=== PATIENT | male | born 1975 | race Hispanic/Latino ===

== ENCOUNTER 2024-03-15 22:02 | Emergency (ER) | payer OTHER ==
[2024-03-15] MEDS ORDERED: MECLIZINE HCL 12.5 MG TAB ONE (22:27)
[2024-03-15] MEDS ORDERED: NA CHLORIDE 0.9% 500 ML ONE (22:28)
[2024-03-15] MEDS ORDERED: DIPHENHYDRAMINE 50 MG/ML VIAL ONE (22:28)
[2024-03-15] MEDS ORDERED: METOCLOPRAMIDE 10 MG/2mL INJ ONE (22:28)
[2024-03-15 22:29] LABS: Absolute Basophils 0.1 K/uL (0-0.5); Absolute Eosinophils 0.1 K/uL (0-0.5); Absolute Lymphocytes (CBC) 1.8 K/uL (0.7-4.9); Absolute Monocytes 0.5 K/uL (0.1-1.3); Absolute Neutrophil 5.6 K/uL (1.8-8.0); Basophils % 0.6 % (0-1.3); Eosinophils % 1.5 % (0-4.4); Hematocrit 47.9 % (39.6-49.0); Hemoglobin 16.4 g/dL (13.6-17.9); MCHC 34.2 g/dL (32.0-36.0); MCV 84.5 fL (80-100); MPV 7.7 fL (7.6-11.3); Monocytes % 6.6 % (3.3-12.3); Neutrophils % 69.3 % (41.7-73.7); Platelets 283 thou/uL (152-406); RBC Red Blood Cell Count 5.66 M/uL (4.33-5.43); Red Cell Distribution Width 13.6 % (12.1-15.2)
[2024-03-15 22:54] LABS: Anion Gap 11.3 mEq/L (5.0-15.0); Potassium 4.3 mEq/L (3.5-5.1); Troponin High Sensitivity 5.8 pg/mL (<58.9)
--- NOTE | 2024-03-15 23:49 | RAD REPORT ---
EXAM DESCRIPTION: Chest Single View CLINICAL HISTORY: COUGH COMPARISON: None TECHNIQUE: Single AP view of the chest. FINDINGS: Lung volumes adequate. Cardiac silhouette is normal in size. No pneumothorax. No large pleural effusion. No focal consolidation. No acute bony finding. IMPRESSION: No evidence of acute cardiopulmonary disease. Electronically signed by: Mark Ross MD 03/15/2024 11:35 PM FENCE REPAIRMAN Z9 Due to temporary technical issues with the PACS/Amitree reporting system, reports are being lily d by the in-house radiologist without review as a courtesy to ensure prompt reporting the interpreting radiologist is fully responsible for the content of the report. Transcribed Date/Time: 03/15/2024 11:48 PM
--- NOTE | 2024-03-15 23:59 | ER ---
Nurse's Notes [facility] Name: Kelechi Arteaga Age: 48 yrs Sex: Male : 1975 Arrival Date: 03/15/2024 Time: 22:02 Bed 16 Private MD: Diagnosis: Other peripheral vertigo Presentation: 03/15 22:07 Chief complaint: EMS states: dizziness, nausea. Coronavirus screen: Client denies kj2 travel out of the [place] in the last 14 days. Ebola Screen: No symptoms or risks identified at this time. 22:07 Method Of Arrival: EMS: [facility] 2 22:10 Initial Sepsis Screen: Does the patient meet any 2 criteria? No. Patient's initial kj2 sepsis screen is negative. Does the patient have a suspected source of infection? No. Patient's initial sepsis screen is negative. Risk Assessment: Do you want to hurt yourself or someone else? Patient reports no desire to harm self or others. Onset of symptoms was March 15, 2024. 22:10 Acuity: KAMRAN 3 kj2 Triage Assessment: 22:12 General: Appears in no apparent distress. Behavior is calm, cooperative. Pain: Denies kj2 pain. Neuro: Level of Consciousness is awake, alert, obeys commands, Oriented to person, place, time, situation. Cardiovascular: Patient's skin is warm and dry. Respiratory: Airway is patent Respiratory effort is unlabored. GI: No signs and/or symptoms were reported involving the gastrointestinal system. : No signs and/or symptoms were reported regarding the genitourinary system. Derm: No deficits noted. Historical: - Allergies: 22:13 No Known Allergies; kj2 - PMHx: 22:11 Hypertensive disorder; Diabetes mellitus; kj2 - Immunization history:: Adult Immunizations unknown. - Infectious Disease History:: Denies. - Social history:: Smoking status: Patient denies any tobacco usage or history of. Screenin:14 [facility] ED Fall Risk Assessment (Adult) History of falling in the last 3 months, kj2 including since admission No falls in past 3 months (0 pts) Confusion or Disorientation No (0 pts) Intoxicated or Sedated No (0 pts) Impaired Gait No (0 pts) Mobility Assist Device Used No (0 pt) Altered Elimination No (0 pt) Score/Fall Risk Level 0 - 2 = Low Risk Maintained a safe environment, Hourly rounding (assess needs \T\ fall precautionary measures) done. Abuse screen: Denies threats or abuse. Denies injuries from another. Nutritional screening: No deficits noted. Tuberculosis screening: No symptoms or risk factors identified. Assessment: 22:15 General: see triage assessment. kj2 23:27 Reassessment: Patient appears in no apparent distress at this time. Patient and/or kj2 family updated on plan of care and expected duration. Pain level reassessed. Patient is alert, oriented x 3, equal unlabored respirations, skin warm/dry/pink. 03/16 00:07 Reassessment: Patient appears in no apparent distress at this time. Patient and/or kj2 family updated on plan of care and expected duration. Pain level reassessed. Patient is alert, oriented x 3, equal unlabored respirations, skin warm/dry/pink. Vital Signs: 03/15 22:07 BP 155 / 99; Pulse 104; Resp 20; Temp 97.9; Pulse Ox 100% on R/A; Weight 114.31 kg; kj2 Height 5 ft. 6 in. ; 23:26 BP 113 / 77; Pulse 86; Resp 18; Pulse Ox 96% on R/A; kj2 03/16 00:07 BP 122 / 84; Pulse 78; Resp 18; Temp 98; Pulse Ox 98% on R/A; kj2 03/15 22:07 Body Mass Index 40.67 (114.31 kg, 167.64 cm) kj2 ED Course: 03/15 22:06 Patient arrived in ED. jj6 22:07 Kurtis Ni MD is Attending Physician. ec2 22:07 Vivian Martin, MELI is Primary Nurse. kj2 22:11 Triage completed. kj2 22:14 Arm band placed on Patient placed in an exam room, on a stretcher. kj2 22:15 Patient has correct armband on for positive identification. Bed in low position. Call kj2 light in reach. Provided Education on: call light. 22:15 Maintain EMS IV. Dressing intact. Good blood return noted. Site clean \T\ dry. Gauge \T\ kj 2 site: 20g right AC. Flushed with 10 mL NS. 22:45 XRAY Chest (1 view) In Process Unspecified. EDMS 22:45 EKG done, by avionic technician. af3 23:28 No provider procedures requiring assistance completed. kj2 03/16 00:10 IV discontinued, intact, bleeding controlled, No redness/swelling at site. Pressure kj2 dressing applied. Administered Medications: 03/15 22:32 Drug: metoCLOPramide IVP 10 mg IVP once; over 1 to 2 minutes Route: IVP; Site: right kj2 antecubital; 03/16 00:10 Follow up: Response: No adverse reaction kj2 03/15 22:38 Drug: Meclizine PO 50 mg PO once Route: PO; kj2 03/16 00:11 Follow up: Response: No adverse reaction kj2 03/15 22:38 Drug: diphenhydrAMINE IVP 12.5 mg IVP once Route: IVP; Site: right antecubital; kj2 03/16 00:10 Follow up: Response: No adverse reaction kj2 03/15 22:38 Drug: NS 0.9% IV 500 ml IV at bolus once; to be given as a bolus over 30 minutes Route: kj2 IV; Rate: bolus; Site: right antecubital; 03/16 00:12 Follow up: IV Status: Completed infusion; IV Intake: 500ml kj2 Medication: 03/15 22:14 VIS not applicable for this client. kj2 Intake: 03/16 00:12 IV: 500ml; Total: 500ml. kj2 Outcome: 03/15 23:58 Discharge ordered by . ec2 03/16 00:09 Discharged to home ambulatory, with family, kj2 Condition: stable Discharge instructions given to patient, Instructed on discharge instructions, follow up and referral plans. Demonstrated understanding of instructions, follow-up care, 00:20 Patient left the ED. kj2 Signatures: Dispatcher [employer] Sharona Keith jj6 Kurtis Ni MD MD ec2 Vivian Martin RN RN kj2 Apryl Matais af3
--- NOTE | 2024-03-15 23:59 | EDPHYS ---
Physician Documentation [facility] Name: Kelechi Arteaga Age: 48 yrs Sex: Male : 1975 Arrival Date: 03/15/2024 Time: 22:02 Bed 16 Private MD: ED Physician Kurtis Ni HPI: 03/15 22:09 This 48 yrs old Male presents to ER via Unassigned with complaints of Dizziness. ec2 22:09 Patient arrives today for evaluation of dizziness. Patient reports he been experiencing ec2 dizziness for the past couple of days. Patient reports that he feels like the room spinning around him. States that he specifically elicits this response when he turns his head a certain direction. Reports no nausea or vomiting. No cough or cold symptoms. Reports no chest pain or difficulty breathing. Denies any abdominal pain. Reports no history of vertigo.. Historical: - Allergies: 22:13 No Known Allergies; kj2 - PMHx: 22:11 Hypertensive disorder; Diabetes mellitus; kj2 - Immunization history:: Adult Immunizations unknown. - Infectious Disease History:: Denies. - Social history:: Smoking status: Patient denies any tobacco usage or history of. ROS: 22:09 Constitutional: as per hpi ec2 Exam: 22:09 Constitutional: GEN: NAD Head: atraumatic Eyes: EOMI Ears: External ears are ec2 normal. CV: regular rate LUNGS: no respiratory distress ABD: non-distended SKIN: no evidence of rashes MSK: no evidence of trauma. Neuro: Cranial nerves II through XII intact, strength intact all 4 extremities, no pronator drift, normal sensation Vital Signs: 22:07 BP 155 / 99; Pulse 104; Resp 20; Temp 97.9; Pulse Ox 100% on R/A; Weight 114.31 kg; kj2 Height 5 ft. 6 in. ; 23:26 BP 113 / 77; Pulse 86; Resp 18; Pulse Ox 96% on R/A; kj2 03/16 00:07 BP 122 / 84; Pulse 78; Resp 18; Temp 98; Pulse Ox 98% on R/A; kj2 03/15 22:07 Body Mass Index 40.67 (114.31 kg, 167.64 cm) kj2 MDM: 03/15 22:09 Medical Screening Exam initiated ec2 22:09 Data reviewed: vital signs, nurses notes. ED course: Patient arrives today for reported ec2 dizziness. Examination yields well-appearing nontoxic hemodynamically stable individual who has an intact neurologic examination. Will obtain a cardiac workup and further assess. History gathered from EMS. Will give the patient crystalloid and Reglan as well as meclizine. I suspect peripheral vertigo given the descriptors and reproducibility with certain positional head movements. Doubt central process given the descriptors. Additionally considered other processes such as arrhythmia, electrolyte disturbances as well as dehydration.. 22:45 ED course: EKG independently reviewed and interpreted by me, shows nsr, rate of 87, no ec2 acute ischemic changes noted, intervals non-actionable.. 23:46 ED course: Chest x-ray independently reviewed and interpreted by me, shows no acute ec2 intrathoracic process.. 23:58 ED course: On reassessment patient with marked improvement in symptoms. Suspect ec2 peripheral vertigo. Will discharge home. Return precautions given.. 03/15 22:07 Order name: Basic Metabolic Panel; Complete Time: 23:02 ec2 03/15 22:07 Order name: CBC with Diff; Complete Time: 22:49 ec2 03/15 22:07 Order name: Troponin HS; Complete Time: 23:02 ec2 03/15 22:07 Order name: XRAY Chest (1 view); Complete Time: 23:59 ec2 03/15 22:07 Order name: Cardiac monitoring; Complete Time: 22:45 ec2 03/15 22:07 Order name: EKG - Nurse/Tech; Complete Time: 22:45 ec2 03/15 22:07 Order name: IV Saline Lock; Complete Time: 22:38 ec2 03/15 22:07 Order name: Labs collected and sent; Complete Time: 22:38 ec2 03/15 22:07 Order name: O2 Per Protocol; Complete Time: 22:39 ec2 03/15 22:07 Order name: O2 Sat Monitoring; Complete Time: 22:39 ec2 Administered Medications: 22:32 Drug: metoCLOPramide IVP 10 mg IVP once; over 1 to 2 minutes Route: IVP; Site: right [facility] antecubital; 03/16 00:10 Follow up: Response: No adverse reaction [facility] 03/15 22:38 Drug: Meclizine PO 50 mg PO once Route: PO; 03/16 00:11 Follow up: Response: No adverse reaction 03/15 22:38 Drug: diphenhydrAMINE IVP 12.5 mg IVP once Route: IVP; Site: right antecubital; kj2 03/16 00:10 Follow up: Response: No adverse reaction 03/15 22:38 Drug: NS 0.9% IV 500 ml IV at bolus once; to be given as a bolus over 30 minutes Route: kj2 IV; Rate: bolus; Site: right antecubital; 03/16 00:12 Follow up: IV Status: Completed infusion; IV Intake: 500ml kj2 Disposition Summary: 03/15/24 23:58 Discharge Ordered Notes: Location: Home ec2 Condition: Stable ec2 Diagnosis - Other peripheral vertigo ec2 Followup: ec2 - With: Private Physician - When: - Reason: Re-evaluation by your physician Discharge Instructions: - Discharge Summary Sheet ec2 - Vertigo, [id number] ec2 Forms: - Medication Reconciliation Form ec2 - Antibiotic Education ec2 - Prescription Opioid Use ec2 - Patient Portal Instructions ec2 - Leadership Thank You Letter ec2 Prescriptions: - Meclizine 25 mg Oral Tablet - take 1 tablet ORAL route every 8 hours As needed; 30 tablet; Refills: 0, ec2 Product Selection Permitted Signatures: Dispatcher [employer] Kurtis Strickland MD MD ec2 Vivian Martin RN RN kj2 Corrections: (The following items were deleted from the chart) 03/15 22:08 22:07 BASIC METABOLIC PANEL+C.LAB.BRZ ordered. EDMS EDMS : 22:07 CBC+H.LAB.BRZ ordered. EDMS EDMS 22:08 22:07 Troponin High Sensitivity+C.LAB.BRZ ordered. EDMS EDMS 22:08 22:08 Chest Single View+RAD.RAD.BRZ ordered. EDMS EDMS
[2024-03-16 01:18] VITALS: BP 122/84; TEMP 98; O2SAT 98
--- NOTE | 2024-03-18 10:50 | EKG ---
Test Date: 2024-03-15 Test Time: 22:42:07 Muffler Installer: AF MEASUREMENT RESULTS: Intervals: Rate: 87 UT: 166 QRSD: 102 QT: 352 QTc: 423 [place]: P: 31 UT: 166 QRS: 34 T: 0 INTERPRETIVE STATEMENTS: Normal sinus rhythm Normal ECG No previous ECG available for comparison Electronically Signed On 03-18-24 10:49:33 POT RUNNER by Alex Fallon
== END 2024-03-16 00:20 | disposition home or self-care (01) ==
LOC: ER 22:02
DX: H81.399 Other peripheral vertigo, unspecified ear (principal); I10 Essential (primary) hypertension; E11.9 Type 2 diabetes mellitus without complications
CPT/HCPCS: 96361; 93005; 85025; 80048; 36415; 84484; 71045; 96375; 96374; 99284; J8597; J2765; J1200; J7040